=== PATIENT | male | born 1930 | race Caucasian/White ===

== ENCOUNTER 2017-06-30 12:02 | Day surgery (SDC) | payer MEDICARE, OTHER ==
[2009-05-22 08:01] VITALS: BP 180/93
[2017-06-30] VITALS (10 sets, daily range): BP systolic 92–144; BP diastolic 54–82; PULSE 57–84; TEMP 97.4–98.2
[~2017-06-30] VITALS: Ht 177.8 cm; Wt 80.4 kg
[~2017-06-30 12:02] MED LIST: AMBIEN 10MG10 MG PO; AVODART 0.5MG0.5 MG PO; FERROUS SU325 MG/TAB PO; FLOMAX 0.40.4 MG/CAP PO; FOLIC ACID PO; HCTZ 25MG25 MG PO; OCUVITE1 TA1 PO; TYLENOL 325MG325 MG PO
[2017-06-30] MEDS ORDERED: NAPROSYN 2250 MG/TAB PO (13:18)
[2017-06-30] MEDS ORDERED: PRINZIDE 25 MG-1 TAB PO (13:20)
[2017-06-30 13:22] LABS: HEMATOCRIT 47.8 % (42.0-52.0)
[2017-06-30 13:29] LABS: CALCIUM 9.8 mg/dL (8.4-10.2); CREATININE, serum 1.13 mg/dL (0.66-1.25); POTASSIUM 4.1 mmol/L (3.4-5.0)
[2017-07-01 01:00] VITALS: BP 105/58; PULSE 71; TEMP 97.5
[2017-07-01 04:21] VITALS: BP 106/46; PULSE 62; TEMP 98.4
[2017-07-01 06:50] LABS: BASO % 0.3 % (0.0-2.0); EOS # 0.1 (0.0-0.7); EOS % 1.3 % (0-4.0); GRAN # 5.2 (1.4-6.5); GRAN % 77.1 % (42.2-75.2); HEMATOCRIT 40.7 % (42.0-52.0); LYMPH # 0.8 (1.2-3.4); LYMPH % 11.9 % (20.0-51.0); MEAN CELL VOLUME 94 fl (80.0-100.0); MEAN CORPUSCULAR HEMOGLOBIN 31 pg (27.0-31.0); MEAN CORPUSCULAR HGB CONC 33 g/dl (33.0-37.0); MEAN PLATELET VOLUME 9.8 fl (7.4-10.4); MONO # 0.6 (0.1-0.6); MONO % 9.1 % (1.7-9.3); PLATELET COUNT 132 K/mm3 (130-400); RED BLOOD COUNT 4.34 M/mm3 (4.20-5.60); WHITE BLOOD COUNT 6.7 K/mm3 (4.8-10.8)
[2017-07-01 07:08] LABS: HEMOGLOBIN 13.3 g/dl (13.5-18.0)
[2017-07-01 09:33] VITALS: BP 137/64; PULSE 64; TEMP 97.9
[2017-07-01 13:39] VITALS: BP 127/63; PULSE 64; TEMP 98.2
[2017-07-01 18:12] VITALS: BP 135/53; PULSE 72; TEMP 98
[2017-07-01 21:11] VITALS: BP 116/51; PULSE 66; TEMP 98.5
[2017-07-02 00:50] VITALS: BP 140/63; PULSE 77; TEMP 98.2
[2017-07-02 05:56] VITALS: BP 118/52; PULSE 82; TEMP 98.6
[2017-07-02 10:02] VITALS: BP 135/73; PULSE 83; TEMP 97.3
== END 2017-07-02 10:18 | disposition home or self-care (01) ==
LOC: SDCO 12:02 → SURG 18:00 → SDCO 07-02 10:18
PROVIDERS: Nurse Anesthetist, Certified Registered; Urology
DX: N40.1 Benign prostatic hyperplasia with lower urinary tract symptoms (principal); N41.0 Acute prostatitis; N13.8 Other obstructive and reflux uropathy; R39.12 Poor urinary stream; I10 Essential (primary) hypertension; H35.30 Unspecified macular degeneration; Z79.82 Long term (current) use of aspirin; Z87.442 Personal history of urinary calculi
CPT/HCPCS: OP; J2250; J2704; J3010; J7120